=== PATIENT | male | born 1980 | race Caucasian/White ===

== ENCOUNTER 2016-07-27 12:37 | Emergency (ER) | payer OTHER ==
[2016-07-27 12:52] VITALS: BP 120/69
[2016-07-27] MEDS ORDERED: Ketorolac INJ* 60 MG/2 ML VIAL IM ONE (13:37)
--- NOTE | 2016-07-27 14:00 | UC ---
Back Pain HPI - HPI Summary HPI Summary: Patient has history of back pain, has had PT in the past, about 2 years ago. 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 - History of Current Complaint Chief Complaint: UCBackPain Stated Complaint: LOW BACK PAIN Time Seen by Provider: 07/27/16 13:27 Hx Obtained From: Patient Onset/Duration: Sudden Onset, Lasting Days Timing: Constant Severity Currently: Severe Character: Aching, Spasmodic, Burning Aggravating: Movement, Lifting, Walking Alleviating: Rest, Position Associated Signs And Symptoms: Positive: Tingling - Risk Factors AAA Risk Factors: Negative TAD Risk Factors: Negative Cauda Equina Risk Factors: Negative Epidural Abscess Risk Factors: Negative - Allergies/Home Medications Allergies/Adverse Reactions: Allergies Allergy/AdvReac Type Severity Reaction Status Date / Time Bee Venom Allergy Swelling Verified 07/27/16 12:46 PMH/Surg Hx/FS Hx/Imm Hx Previously Healthy: Yes Endocrine History Of: Denies: Diabetes Cardiovascular History Of: Denies: Cardiac Disorders Respiratory History Of: Denies: COPD GI/ History Of: Denies: Gastroesophageal Reflux Neurological History Of: Denies: TIA Psychological History Of: Denies: Anxiety - Surgical History Surgical History: Yes Surgery Procedure, Year, and Place: Left Knee ACL/MCL and arthroscopies; Ear Surgeries; T&A - Family History Known Family History: Positive: None, Cardiac Disease, Hypertension, Diabetes - Social History Alcohol Use: Weekly Alcohol Amount: 2 Substance Use Type: None Smoking Status (MU): Former Smoker Type: Cigarettes Amount Used/How Often: 1/2 PPD Length of Time of Smoking/Using Tobacco: 7 Years Have You Smoked in the Last Year: Yes When Did the Patient Quit Smoking/Using Tobacco: 02/2016 - Immunization History Most Recent Influenza Vaccination: Not the 2015/2016 Season Review of Systems Constitutional: Negative Skin: Negative Eyes: Negative ENT: Negative Respiratory: Negative Cardiovascular: Negative Gastrointestinal: Negative Genitourinary: Negative Motor: Negative Neurovascular: Decreased Sensation Musculoskeletal: Arthralgia, Decreased ROM, Edema, Myalgia Neurological: Weakness Psychological: Negative All Other Systems Reviewed And Are Negative: Yes Physical Exam Triage Information Reviewed: Yes Appearance: Well-Appearing, Well-Nourished, Pain Distress Vital Signs: Initial Vital Signs Temp 97.9 F 07/27/16 12:44 Pulse 68 07/27/16 12:44 Resp 16 07/27/16 12:44 BP 120/69 07/27/16 12:44 Pulse Ox 99 07/27/16 12:44 Vital Signs Reviewed: Yes Eye Exam: Normal Eyes: Positive: Conjunctiva Clear ENT Exam: Normal ENT: Positive: Normal ENT inspection, Hearing grossly normal, Pharynx normal, TMs normal Dental Exam: Normal Neck exam: Normal Neck: Positive: Supple, Nontender, No Lymphadenopathy Respiratory Exam: Normal Respiratory: Positive: Chest non-tender, Lungs clear, Normal breath sounds Cardiovascular Exam: Normal Cardiovascular: Positive: RRR, No Murmur, Pulses Normal Abdominal Exam: Normal Abdomen Description: Positive: Nontender, No Organomegaly, Soft Bowel Sounds: Positive: Present Musculoskeletal: Positive: Strength Limited @ - in bilateral lower extremities, ROM Limited @ - in lumbar flextion and ext, Edema @ - over the spinearound l4 Neurological Exam: Normal Neurological: Positive: Alert, Muscle Tone Normal Psychological Exam: Normal Skin Exam: Normal Back Pain Course/Dx - Course Course Of Treatment: hx obtained, exam performed, toradol given for pain, xray obtained, - Differential Dx/Diagnosis Differential Diagnosis/HQI/PQRI: Arthritis, Fracture, Herniated Disc, Strain, Sprain Provider Diagnoses: lumbar muscle strain Discharge - Discharge Plan Condition: Stable Disposition: HOME Prescriptions: Meloxicam(NF) [Mobic(NF)] 15 mg PO DAILY #14 tab Patient Education Materials: Low Back Strain (ED), Core Strengthening Exercises (GEN) Forms: *Work Release Referrals: DARLENE Parra [Primary Care Provider] - Additional Instructions: take the medication as prescribed, start tomorrow morning. Ice and heat as tolerated. I recommend follow up with your physical therpapist. You did recieve a shot of Toradol today, no Iburprofen or Aleve until 10 pm tonight.
--- NOTE | 2016-07-27 14:20 | RAD ---
INDICATION: Back pain after lifting object COMPARISON: None TECHNIQUE: Routine PA, lateral, and oblique imaging was performed . FINDINGS: Bones: There are no acute bony findings. There are no significant osteoarthritic findings. Alignment: Normal Disc spaces: The disc spaces are well-maintained Soft tissues: There are no soft tissue abnormalities. IMPRESSION: NEGATIVE EXAMINATION.
== END 2016-07-27 14:47 | disposition home or self-care (01) ==
LOC: UCCORT 12:37
DX: S39.012A Strain of muscle, fascia and tendon of lower back, initial encounter (principal); X50.0XXA Overexertion from strenuous movement or load, initial encounter; Y93.89 Activity, other specified; Y92.9 Unspecified place or not applicable; Z87.891 Personal history of nicotine dependence
CPT/HCPCS: 72110; 96372; 99212; G0463; J1885

== ENCOUNTER 2017-04-17 14:11 | Emergency (ER) | payer SELFPAY ==
[2017-04-17 15:10] VITALS: BP 118/62
--- NOTE | 2017-04-17 16:29 | UC ---
Neck Pain HPI - HPI Summary HPI Summary: Left side neck pain hurts in neck shoulder, jaw,, left lower back pain radiates down pelvis in to buttock and down leg-----cannot get in to a comfortable position to sleep - History of Current Complaint Chief Complaint: UCGeneralIllness Stated Complaint: LEFT SIDE JAW,NECK SHOULDER PAIN/LOW BACK PAIN Time Seen by Provider: 04/17/17 16:14 Hx Obtained From: Patient Onset/Duration Of Injury/Symptoms: Months Mechanism Of Injury: No Known Trauma Timing: Constant Onset/Duration: Gradual Onset, Still Present Severity: Moderate Location: Discrete At: - as described Character: Aching, Stiff, Spasmotic Aggravating Factors: Nothing Alleviating Factors: Nothing Associated Signs & Symptoms: Positive: Negative - Allergies/Home Medications Allergies/Adverse Reactions: Allergies Allergy/AdvReac Type Severity Reaction Status Date / Time Bee Venom Allergy Swelling Verified 04/17/17 14:57 PMH/Surg Hx/FS Hx/Imm Hx - Additional Past Medical History Additional PMH: sciatica and bulding discs has some relief in the past with physical therapy Previously Healthy: Yes Psychological History: Anxiety - Surgical History Surgical History: Yes Surgery Procedure, Year, and Place: Left Knee ACL/MCL and arthroscopies; Ear Surgeries; T&A - Family History Known Family History: Positive: None, Cardiac Disease, Hypertension, Diabetes - Social History Occupation: Employed Full-time Lives: With Family Alcohol Use: Occasionally Alcohol Amount: 2 Substance Use Type: None Smoking Status (MU): Former Smoker Type: Cigarettes Amount Used/How Often: 1/2 PPD Length of Time of Smoking/Using Tobacco: 7 Years Have You Smoked in the Last Year: Yes When Did the Patient Quit Smoking/Using Tobacco: 02/2016 - Immunization History Most Recent Influenza Vaccination: Not the Season Review Of Systems Constitutional: Positive: Negative Skin: Positive: Negative Eyes: Positive: Negative Respiratory: Positive: Negative Cardiovascular: Positive: Negative Gastrointestinal: Positive: Negative Genitourinary: Positive: Negative Musculoskeletal: Positive: Arthralgia, Myalgia Neurological: Positive: Negative Psychological: Positive: Negative All Other Systems Reviewed And Are Negative: Yes Physical Exam Triage Information Reviewed: Yes Appearance: Well-Appearing, No Pain Distress, Well-Nourished Vital Signs: Initial Vital Signs Temp 98.1 F 04/17/17 14:59 Pulse 62 04/17/17 14:59 Resp 18 04/17/17 14:59 BP 118/62 04/17/17 14:59 Pulse Ox 98 04/17/17 14:59 Vital Signs Reviewed: Yes Eye Exam: Normal Eyes: Positive: Conjunctiva Clear ENT Exam: Normal ENT: Positive: Normal ENT inspection, Hearing grossly normal, Pharynx normal, TMs normal, Uvula midline. Negative: Nasal congestion, Nasal drainage, TM bulging, Tonsillar swelling, Trismus, Muffled voice, Hoarse voice, Dental tenderness, Sinus tenderness Dental Exam: Normal Neck exam: Normal Neck: Positive: Supple, Nontender, No Lymphadenopathy Respiratory Exam: Normal Respiratory: Positive: Chest non-tender, Lungs clear, Normal breath sounds, No respiratory distress, No accessory muscle use Cardiovascular Exam: Normal Cardiovascular: Positive: RRR, No Murmur, Pulses Normal, Brisk Capillary Refill Abdominal Exam: Normal Abdomen Description: Positive: Nontender, No Organomegaly, Soft Bowel Sounds: Positive: Present Musculoskeletal Exam: Normal Musculoskeletal: Positive: Strength Intact, ROM Intact, No Edema Neurological Exam: Normal Neurological: Positive: Alert, Muscle Tone Normal Psychological Exam: Normal Psychological: Positive: Normal Response To Family Skin Exam: Normal Neck Pain Course/Dx - Course Course Of Treatment: pain med, medrol dose keke, muscle relaxor, genenal exercise , return to physical therapy, follow with pcp - Differential Dx/Diagnosis Provider Diagnoses: right sciatica, muscle spasm left neck and shoulder Discharge - Discharge Plan Condition: Stable Disposition: HOME Prescriptions: Cyclobenzaprine TAB* [Flexeril 10 MG TAB*] 10 mg PO TID PRN #15 tab PRN Reason: muscle spasm Methylprednisolone [Medrol Dosepak 4 MG*] 4 mg PO .SEE KEKE INSTRUCTION #1 keke traMADol TAB* [Ultram*] 50 mg PO Q6HR PRN #16 tab MDD 4 PRN Reason: Pain Patient Education Materials: Sciatica (ED), Muscle Spasm (ED), Lower Back Exercises (ED) Forms: *Work Release Referrals: DARLENE Parra [Primary Care Provider] - 3 Days
== END 2017-04-17 16:42 | disposition home or self-care (01) ==
LOC: UCCORT 14:11
DX: M62.838 Other muscle spasm (principal); M54.41 Lumbago with sciatica, right side; F41.9 Anxiety disorder, unspecified; Z87.891 Personal history of nicotine dependence
CPT/HCPCS: 93005; 99212; G0463

== ENCOUNTER 2017-05-28 08:32 | Emergency (ER) | payer SELFPAY ==
[2017-05-28 08:55] VITALS: BP 118/72
--- NOTE | 2017-05-28 10:13 | UC ---
Throat Pain/Nasal Danilo HPI - HPI Summary HPI Summary: sore throat, chills fever, and body aches for the past 5 days. - History of Current Complaint Chief Complaint: UCRespiratory Stated Complaint: SORE THROAT,BODY ACHES,BILATER EAR Time Seen by Provider: 05/28/17 10:00 Hx Obtained From: Patient Onset/Duration: Sudden Onset, Lasting Days Severity: Moderate Associated Signs & Symptoms: Positive: Dysphagia, Sinus Discomfort, Nasal Discharge, Fever - Allergies/Home Medications Allergies/Adverse Reactions: Allergies Allergy/AdvReac Type Severity Reaction Status Date / Time Bee Venom Allergy Swelling Verified 05/28/17 08:55 Home Medications: Home Medications Col[place]ze Cough Drops 1 tab PO BID PRN 05/28/17 [History Confirmed 05/28/17] Menthol (Mouth-Throat) [[place] Cough Drops] 7 mg MT ONCE PRN 05/28/17 [History Confirmed 05/28/17] PMH/Surg Hx/FS Hx/Imm Hx Previously Healthy: Yes - Surgical History Surgical History: Yes Surgery Procedure, Year, and Place: Left Knee ACL/MCL and arthroscopies; Ear Surgeries; T&A - Family History Known Family History: Positive: None, Cardiac Disease, Hypertension, Diabetes - Social History Alcohol Use: Occasionally Alcohol Amount: 2 Substance Use Type: None Smoking Status (MU): Former Smoker Type: Cigarettes Amount Used/How Often: 1/2 PPD Length of Time of Smoking/Using Tobacco: 7 Years Have You Smoked in the Last Year: Yes When Did the Patient Quit Smoking/Using Tobacco: 02/2016 - Immunization History Most Recent Influenza Vaccination: Not the Season Review of Systems Constitutional: Fever, Chills Skin: Negative Eyes: Negative ENT: Sore Throat, Ear Ache, Sinus Congestion Respiratory: Cough Cardiovascular: Negative Gastrointestinal: Negative Genitourinary: Negative Motor: Negative Neurovascular: Negative Musculoskeletal: Arthralgia, Myalgia Neurological: Headache Psychological: Negative Is Patient Immunocompromised?: No All Other Systems Reviewed And Are Negative: Yes Physical Exam Triage Information Reviewed: Yes Appearance: Well-Nourished, Ill-Appearing, Pain Distress Vital Signs: Initial Vital Signs Temp 100 F 05/28/17 08:45 Pulse 80 05/28/17 08:45 Resp 18 05/28/17 08:45 BP 118/72 05/28/17 08:45 Pulse Ox 98 05/28/17 08:45 Vital Signs Reviewed: Yes Eye Exam: Normal ENT: Positive: Pharyngeal erythema, Nasal congestion, Other - bilateral cerumen impaction, patient refused irrigation Dental Exam: Normal Neck exam: Normal Neck: Positive: Supple, Nontender, No Lymphadenopathy Respiratory Exam: Normal Respiratory: Positive: Chest non-tender, Lungs clear, Normal breath sounds Abdominal Exam: Normal Abdomen Description: Positive: Nontender, No Organomegaly, Soft Bowel Sounds: Positive: Present Musculoskeletal Exam: Normal Musculoskeletal: Positive: Strength Intact, ROM Intact, No Edema Neurological Exam: Normal Neurological: Positive: Alert, Muscle Tone Normal Psychological Exam: Normal Skin Exam: Normal Throat Pain/Nasal Course/Dx - Course Course Of Treatment: hx obtained, exam performed ,meds reviewed, patient refused motrin or APAP, refused ear irrigation. rapid flu and strep obtained. - Differential Dx/Diagnosis Differential Diagnosis/HQI/PQRI: Influenza, Otitis Media, Pharyngitis, Sinusitis , URI Provider Diagnoses: tonsillitis. sinusitis Discharge - Discharge Plan Condition: Stable Disposition: HOME Prescriptions: Amoxicillin PO (*) [Amoxicillin 875 MG (*)] 875 mg PO BID #20 tab Guaifenesin-Codeine [Cheratussin AC 100-10 mg/5Ml] 1 syp PO BID PRN #50 syp MDD 10 ml PRN Reason: Cough predniSONE TAB* [Deltasone TAB*] 40 mg PO DAILY #14 tab Referrals: No Primary Care Phys,NOPCP [Primary Care Provider] - Additional Instructions: 1. increase fluid intake and get plenty of rest. 2. take the medication as prescribed. 3. I recommend getting an ear wash kit, to flush bothe ears. 4. FOllow up as needed.
== END 2017-05-28 10:36 | disposition home or self-care (01) ==
LOC: UCCORT 08:32
DX: J03.90 Acute tonsillitis, unspecified (principal); J32.9 Chronic sinusitis, unspecified; Z91.030 Bee allergy status; Z87.891 Personal history of nicotine dependence
CPT/HCPCS: 87502; 87651; 99212; G0463

== ENCOUNTER 2017-07-26 15:31 | Emergency (ER) | payer SELFPAY ==
[2017-07-26 16:52] VITALS: BP 118/70
--- NOTE | 2017-07-26 17:15 | RAD ---
INDICATION: Right hand injury. TECHNIQUE: 4 views of the right hand were obtained. FINDINGS: There is soft tissue swelling in the second finger. There is an oblique fracture extending through the dorsal base of the distal phalanx to the articular margin. The fracture fragment is slightly distracted. No other fractures are seen. IMPRESSION: SLIGHTLY DISPLACED INTRA-ARTICULAR FRACTURE AT THE DORSAL BASE OF THE DISTAL PHALANX OF THE SECOND FINGER.
--- NOTE | 2017-07-26 17:22 | UC ---
Hand/Wrist HPI - HPI Summary HPI Summary: 36 yo male punched a wall in anger 2 days ago c/o r hand pain unable to [employer] tools at work skin not broken-he was wearing gloves - History Of Current Complaint Chief Complaint: UCUpperExtremity Stated Complaint: RT HAND INJURY Time Seen by Provider: 07/26/17 16:46 Hx Obtained From: Patient Onset/Duration: Sudden Onset Severity Initially: Moderate Severity Currently: Moderate Pain Intensity: 7 Pain Scale Used: 0-10 Numeric Character Of Pain: Aching, Throbbing Aggravating Factor(s): Movement Associated Signs And Symptoms: Positive: Swelling, Bruising Related History: Dominant Hand Right Hands: 1 - swollen/ecchymotic 2 - swollen/tender 3 - tender - Allergies/Home Medications Allergies/Adverse Reactions: Allergies Allergy/AdvReac Type Severity Reaction Status Date / Time bee venom protein (honey bee) Allergy Swelling Verified 07/26/17 16:45 Home Medications: Home Medications Ibuprofen TAB* [Advil TAB*] 800 mg PO Q6H PRN 07/26/17 [History Confirmed ] PMH/Surg Hx/FS Hx/Imm Hx Previously Healthy: Yes - Surgical History Surgical History: Yes Surgery Procedure, Year, and Place: Left Knee ACL/MCL and arthroscopies; Ear Surgeries; T&A - Family History Known Family History: Positive: Cardiac Disease, Hypertension, Diabetes - Social History Alcohol Use: Rare Alcohol Amount: 2 Substance Use Type: None Smoking Status (MU): Former Smoker Type: Cigarettes Amount Used/How Often: 1/2 PPD Length of Time of Smoking/Using Tobacco: 7 Years Have You Smoked in the Last Year: Yes When Did the Patient Quit Smoking/Using Tobacco: 02/2016 - Immunization History Most Recent Influenza Vaccination: Not the Season Review of Systems Constitutional: Negative Skin: Bruising Eyes: Negative ENT: Negative Respiratory: Negative Cardiovascular: Negative Gastrointestinal: Negative Genitourinary: Negative Motor: Negative Neurovascular: Negative Musculoskeletal: Arthralgia Neurological: Negative Psychological: Negative Is Patient Immunocompromised?: No All Other Systems Reviewed And Are Negative: Yes Physical Exam Triage Information Reviewed: Yes Appearance: Well-Appearing, No Pain Distress, Well-Nourished Vital Signs: Initial Vital Signs Temp 98 F 07/26/17 16:46 Pulse 75 07/26/17 16:46 Resp 20 07/26/17 16:46 BP 118/70 07/26/17 16:46 Pulse Ox 97 07/26/17 16:46 Vital Signs Reviewed: Yes Eyes: Positive: Conjunctiva Clear ENT: Positive: Hearing grossly normal. Negative: Nasal congestion, Nasal drainage, Trismus, Muffled voice, Hoarse voice Neck: Positive: Supple, Nontender Respiratory: Positive: Lungs clear, Normal breath sounds, No respiratory distress Cardiovascular: Positive: RRR, No Murmur Abdominal Exam: Normal Musculoskeletal: Positive: Edema @ - doesal hand (R), Other: - mallet finger deformity right IF, Neurological: Positive: Alert Skin Exam: Normal Procedures - Splinting Location: right 2nd finger Pre-Made Type: 5.5 STAX splint Pre-Proc Neuro Vasc Exam: normal Post-Proc Neuro Vasc Exam: normal Diagnostics - Radiology No standard instances Xray Interpretation: Positive (See Comments) - SLIGHTLY DISPLACED INTRA- ARTICULAR FRACTURE AT THE DORSAL BASE OF THE DISTAL PHALANX OF THE SECOND FINGER Radiology Interpretation Completed By: Radiologist Hand/Wrist Course/Dx - Differential Dx/Diagnosis Provider Diagnoses: 1. hand contusion. 2. SLIGHTLY DISPLACED INTRA-ARTICULAR FRACTURE AT THE DORSAL BASE OF THE DISTAL. PHALANX OF THE SECOND FINGER Discharge - Discharge Plan Condition: Stable Disposition: HOME Patient Education Materials: Finger Fracture (ED), Contusion in Adults (ED) Forms: *Work Release Referrals: Kel Shelby MD [Medical Doctor] - As Soon As Possible Additional Instructions: you have a mallet finger with a fracture STAX splint hand contusion splint motrin see orthopedist about your mallet finger sometime's this needs surgical repair
== END 2017-07-26 17:42 | disposition home or self-care (01) ==
LOC: UCCORT 15:31
DX: S60.221A Contusion of right hand, initial encounter (principal); S62.630A Displaced fracture of distal phalanx of right index finger, initial encounter for closed fracture; W22.09XA Striking against other stationary object, initial encounter; Y93.9 Activity, unspecified; Y92.9 Unspecified place or not applicable; Z87.891 Personal history of nicotine dependence
CPT/HCPCS: 99212; G0463

== ENCOUNTER 2018-03-02 14:04 | Emergency (ER) | payer OTHER ==
[2018-03-02 16:07] VITALS: BP 126/76
[2018-03-02] MEDS ORDERED: Naproxen TAB* 250 MG PO ONE (16:29)
--- NOTE | 2018-03-02 16:42 | UC ---
Upper Extremity HPI - HPI Summary HPI Summary: 37-year-old male presents with right shoulder pain after accidentally falling out of bed and landing on his outstretched arm onto a hardwood floor last night. States pain as a constant ache. Worsens with movement. Has not taken any [id number] pain medications. Reports previous injury to the shoulder couple years ago resulting in an AC separation. Denies other injury, chest pain , palpitations, dizziness, shortness of breath, numbness, tingling, or weakness to the affected extremity. - History of Current Complaint Chief Complaint: UCTrauma Stated Complaint: RIGHT SHOULDER/NECK PAIN Time Seen by Provider: 03/02/18 16:05 Hx Obtained From: Patient Onset/Duration: Sudden Onset Severity Currently: Moderate Pain Intensity: 8 Character: Aching Aggravating Factor(s): Movement Alleviating Factor(s): Nothing Associated Signs And Symptoms: Positive: Negative - Allergies/Home Medications Allergies/Adverse Reactions: Allergies Allergy/AdvReac Type Severity Reaction Status Date / Time bee venom protein (honey bee) Allergy Swelling Verified 03/02/18 16:07 PMH/Surg Hx/FS Hx/Imm Hx Previously Healthy: Yes - Denies significant PMH - Surgical History Surgical History: Yes Surgery Procedure, Year, and Place: Left Knee ACL/MCL and arthroscopies; Ear Surgeries; T&A - Family History Known Family History: Positive: Cardiac Disease, Hypertension, Diabetes - Social History Occupation: Employed Full-time Lives: With Family Alcohol Use: Rare Alcohol Amount: 2 Substance Use Type: None Smoking Status (MU): Former Smoker Type: Cigarettes Amount Used/How Often: 1/2 PPD Length of Time of Smoking/Using Tobacco: 7 Years Have You Smoked in the Last Year: Yes When Did the Patient Quit Smoking/Using Tobacco: 02/2016 - Immunization History Most Recent Influenza Vaccination: Not the Season Review of Systems Constitutional: Negative Skin: Negative Respiratory: Negative Cardiovascular: Negative Motor: Decreased ROM - due to pain Neurovascular: Negative Musculoskeletal: Arthralgia - See HPI Neurological: Negative Is Patient Immunocompromised?: No All Other Systems Reviewed And Are Negative: Yes Physical Exam Triage Information Reviewed: Yes Appearance: Well-Appearing, No Pain Distress, Well-Nourished Vital Signs: Initial Vital Signs Temp 98.0 F 03/02/18 16:02 Pulse 89 03/02/18 16:02 Resp 18 03/02/18 16:02 BP 126/76 03/02/18 16:02 Pulse Ox 97 03/02/18 16:02 Vital Signs Reviewed: Yes Neck: Positive: Supple, Nontender Respiratory: Positive: Lungs clear, Normal breath sounds, No respiratory distress Cardiovascular: Positive: RRR, No Murmur, Pulses Normal, Brisk Capillary Refill Musculoskeletal: Positive: Strength Intact, No Edema, ROM Limited @ - Limited flexion d/t pain, Other: - Mild tenderness anterior shoulder. No obvious deformity, crepitus, erythema, or eccymosis. Neurological: Positive: Alert, Other: - Sensation intact distally Skin Exam: Normal Diagnostics - Radiology No standard instances Xray Interpretation: No Acute Changes Radiology Interpretation Completed By: ED Physician - No fracture or dislocation , Radiologist - Patient Name: TREVOR SUE Medical Record#: [id number] Ordering Physician: Flex Palacios NP Acct.#: [id number] : 1980 Age : 37 Sex: M Location: [facility] Exam Date: 03/02/181628 ADM Status : REG ER Order Information: SHOULDER RIGHT 2+ VWS Accession Number: [id number] CPT: 86350 Indication: Right shoulder pain. 4 views of the right shoulder demonstrates no fracture or dislocation. No other bone or joint abnormality is noted. IMPRESSION: No fracture of the right shoulder is noted. Upper Extremity Course/Dx - Course Course Of Treatment: 37 year old male with right shoulder pain s/p falling out of bed. Patient had full but painful ROM. Mild tenderness over AC joint. X-ray negative for fracture or dislocation. Recommend conservative treatment with NSAIDs, RICE, and ROM exercises. Patient is to follow up with PCP if symptoms persist. - Differential Dx/Diagnosis Differential Diagnosis/HQI/PQRI: Contusion, Fracture (Closed), Sprain Provider Diagnoses: Right shoulder sprain Discharge - Sign-Out/Discharge Documenting (check all that apply): Patient Departure All imaging exams completed and their final reports reviewed: Yes - Discharge Plan Condition: Stable Disposition: HOME Prescriptions: Naproxen [Naproxen 500 mg tab] 500 mg PO BID #30 tablet Patient Education Materials: Shoulder Sprain (ED) Forms: *Work Release Referrals: Lindsay Crocker MD [Primary Care Provider] - 7 Days (If no improvement.) Additional Instructions: The x-ray of the right shoulder was performed in the clinic today showed no evidence of a fracture or dislocation. His symptoms are likely from a sprain or contusion of the shoulder. Rest the shoulder as much as possible. Avoid heavy lifting until pain free. You should perform some gentle range of motion exercises as discussed to avoid the shoulder from freezing up. Apply ice for 15-20 minutes 4 times a day to help reduce any swelling. Take naproxen 1 tablet every 12 hours for the next 5-7 days. Be sure to take with food to avoid upset stomach. After 5-7 days you may start taking this every 12 hours as needed for pain. Follow-up with your primary care provider in 7 days if symptoms persist. - Billing Disposition and Condition Condition: STABLE Disposition: Home - Attestation Statements Provider Attestation: Per institutional requirements, I have reviewed the chart, however, I was not consulted specifically or made aware of this patient by the midlevel provider. I did not personally evaluate, interact with , or disposition this patient.
--- NOTE | 2018-03-02 17:28 | RAD ---
Indication: Right shoulder pain. 4 views of the right shoulder demonstrates no fracture or dislocation. No other bone or joint abnormality is noted. IMPRESSION: No fracture of the right shoulder is noted.
== END 2018-03-02 18:11 | disposition home or self-care (01) ==
LOC: UCCORT 14:04
DX: S43.401A Unspecified sprain of right shoulder joint, initial encounter (principal); W06.XXXA Fall from bed, initial encounter; Y92.9 Unspecified place or not applicable; Z87.891 Personal history of nicotine dependence; Z91.030 Bee allergy status
CPT/HCPCS: 99212; A9270-GY; G0463

== ENCOUNTER 2018-07-05 09:31 | Emergency (ER) | payer OTHER ==
[2018-07-05 10:00] VITALS: BP 125/73
--- NOTE | 2018-07-05 10:09 | UC ---
Ear Complaint HPI - HPI Summary HPI Summary: 37-year-old male presents with 10 day history of nasal congestion, runny nose, mild sore throat, and occasionally productive cough. States over the past 5 days he has been having increasing bilateral ear pain and fullness. States he had a couple episodes of some thin yellow drainage from the ears. Reports a history of multiple ear surgeries as a child. Denies fever, chills, dysphagia, hearing loss, tinnitus, vertigo, chest pain, shortness of breath, abdominal pain , nausea, vomiting, or diarrhea. - History of Current Complaint Chief Complaint: UCEar Stated Complaint: BI LAT EAR PAIN Time Seen by Provider: 07/05/18 10:04 Hx Obtained From: Patient Pain Intensity: 7 - Allergies/Home Medications Allergies/Adverse Reactions: Allergies Allergy/AdvReac Type Severity Reaction Status Date / Time bee venom protein (honey bee) Allergy Swelling Verified 07/05/18 09:54 PMH/Surg Hx/FS Hx/Imm Hx Previously Healthy: Yes - Denies significant PMH - Surgical History Surgical History: Yes Surgery Procedure, Year, and Place: Left Knee ACL/MCL and arthroscopies; Ear tubes x 7-8 as a child; T&A - Family History Known Family History: Positive: Cardiac Disease, Hypertension, Diabetes - Social History Occupation: Employed Full-time Lives: With Family Alcohol Use: None Alcohol Amount: 2 Substance Use Type: None Smoking Status (MU): Former Smoker Type: Cigarettes Amount Used/How Often: 1/2 PPD Length of Time of Smoking/Using Tobacco: 7 Years Have You Smoked in the Last Year: Yes When Did the Patient Quit Smoking/Using Tobacco: 02/2016 - Immunization History Most Recent Influenza Vaccination: Not the 2015/2016 Season Review of Systems All Other Systems Reviewed And Are Negative: Yes Constitutional: Negative: Fever, Chills Skin: Negative: Rash Eyes: Negative: Drainage, Eye Redness ENT: Positive: Sore Throat, Ear Ache, Nasal Discharge, Sinus Congestion. Negative: Sinus Pain/Tenderness Respiratory: Positive: Cough. Negative: Shortness Of Breath Cardiovascular: Negative: Palpitations, Chest Pain Gastrointestinal: Negative: Abdominal Pain, Vomiting, Diarrhea, Nausea Genitourinary: Positive: Negative Musculoskeletal: Positive: Negative Neurological: Positive: Negative Is Patient Immunocompromised?: No Physical Exam - Summary Physical Exam Summary: GENERAL APPEARANCE: Well developed, well nourished, alert and cooperative, and appears to be in no acute distress. EYES: Conjunctiva clear. No drainage. Vision is grossly intact. EARS: Bilateral external auditory canals with some cerumen. Left TM intact, opaque, with good cone of light. Right TM erythematous with effusion. Hearing grossly intact. NOSE: Mild-moderate nasal congestion. No nasal discharge. THROAT: Mild pharyngeal erythema. No tonsilar inflammation, swelling, exudate, or lesions. Oral cavity normal. Teeth and gingiva in good general condition. NECK: Neck supple, non-tender without lymphadenopathy. CARDIAC: Normal S1 and S2. No S3, S4 or murmurs. Rhythm is regular. There is no peripheral edema, cyanosis or pallor. Extremities are warm and well perfused. Capillary refill is less than 2 seconds. LUNGS: Clear to auscultation without rales, rhonchi, wheezing or diminished breath sounds. ABDOMEN: Positive bowel sounds. Soft, nondistended, nontender. No guarding or rebound. No masses or hepatosplenomegally. MUSKULOSKELETAL: ROM intact to all extremities. No joint erythema or tenderness. Normal muscular development. Normal gait. SKIN: Skin normal color, texture and turgor with no lesions or eruptions. Triage Information Reviewed: Yes Vital Signs: Initial Vital Signs Temp 97.6 F 07/05/18 09:55 Pulse 62 07/05/18 09:55 Resp 16 07/05/18 09:55 BP 125/73 07/05/18 09:55 Pulse Ox 98 07/05/18 09:55 Vital Signs Reviewed: Yes Ear Complaint Course/Dx - Course Course Of Treatment: 37-year-old male presents with 10 day history of nasal congestion, runny nose, mild sore throat, and occasionally productive cough. States over the past 5 days he has been having increasing bilateral ear pain and fullness. States he had a couple episodes of some thin yellow drainage from the ears. Reports a history of multiple ear surgeries as a child. Denies fever, chills, dysphagia, hearing loss, tinnitus, vertigo, chest pain, shortness of breath, abdominal pain, nausea, vomiting, or diarrhea. Afebrile. Vital signs stable. Exam reveals an adult male in no acute distress with right TM erythema with effusion, mild to moderate nasal congestion, mild pharyngeal erythema without tonsillar swelling or exudate, clear bilateral breath sounds, and a nonproductive cough. I will place him on Augmentin 875 mg 1 tablet twice a day 10 days to treat for the right otitis media and recommended symptomatic treatment for his URI symptoms. He is to return here or follow-up with his primary care provider in 7 days if symptoms do not improve. She is short guidance and warning symptoms were reviewed with the patient. Verbalizes understanding and agrees with plan of care. - Differential Dx/Diagnosis Differential Diagnosis/HQI/PQRI: Otitis Externa, Otitis Media, URI, Other - Eustachian tube dysfunction Provider Diagnosis: Upper respiratory infection with cough and congestion, Right otitis media with effusion Discharge - Sign-Out/Discharge Documenting (check all that apply): Patient Departure All imaging exams completed and their final reports reviewed: No Studies - Discharge Plan Condition: Stable Disposition: HOME Prescriptions: Amoxicillin/Clavulanate TAB* [Augmentin TAB 875*] 875 mg PO BID #20 tab Fluticasone NASAL SPRAY 50MCG* [Flonase NASAL SPRAY 50MCG*] 2 spray BOTH NARES DAILY #1 btl Patient Education Materials: Ear Infection (ED), Upper Respiratory Infection ( ED) Referrals: Lindsay Crocker MD [Primary Care Provider] - 7 Days (If no improvement in symptoms. ) Additional Instructions: Your history and exam are consistent with an upper respiratory infection with secondary ear infection. We will treat you with an antibiotic for the ear infection. Start Augmentin 875 mg 1 tab every 12 hours for 10 days. Take with food to avoid upset stomach. Be sure to complete the entire course even if feeling better. Drink plenty of fluids to avoid dehydration especially if you are running any fever. Use fluticasone (Flonase) nasal spray 2 sprays each nostril once daily. Use [id number] Sudafed according to directions for the congestion. Take over the counter acetaminophen (Tylenol) or ibuprofen (Advil, Motrin) according to directions as needed for pain or fever. Return here or follow up with your primary care provider in 7 days if symptoms persist. Seek immediate medical attention in the emergency room if you have fever greater than 100.5 F despite taking acetaminophen or ibuprofen, have chest pain , difficulty breathing, are unable to swallow, or have any worsening of symptoms. - Billing Disposition and Condition Condition: STABLE Disposition: Home
== END 2018-07-05 10:24 | disposition home or self-care (01) ==
LOC: UCCORT 09:31
DX: H65.91 Unspecified nonsuppurative otitis media, right ear (principal); J06.9 Acute upper respiratory infection, unspecified; R05 Cough; R09.81 Nasal congestion; Z87.891 Personal history of nicotine dependence; Z91.030 Bee allergy status
CPT/HCPCS: 99212; G0463

== ENCOUNTER 2018-10-06 17:24 | Emergency (ER) | payer SELFPAY ==
--- NOTE | 2018-10-06 18:30 | ED ---
Lower Extremity - HPI Summary HPI Summary: 37 yr old male with the complaint of right ankle pain. Onset this afternoon when he stepped in a hole when getting off a ladder. He has pain in the lateral and medial ankle and over the proximal fibula. Pain is moderate, and worse with weight bear. The patient worked most of the day after the injury. - History of Current Complaint Stated Complaint: RIGHT ANKLE INJURY Time Seen by Provider: 10/06/18 18:12 - Allergies/Home Medications Allergies/Adverse Reactions: Allergies Allergy/AdvReac Type Severity Reaction Status Date / Time bee venom protein (honey bee) Allergy Swelling Verified 10/06/18 18:40 PMH/Surg Hx/FS Hx/Imm Hx Endocrine/Hematology History: Denies: Hx Diabetes Respiratory History: Denies: Hx Chronic Obstructive Pulmonary Disease (COPD) Neurological History: Denies: Hx Transient Ischemic Attacks (TIA) Psychiatric History: Denies: Hx Anxiety - Surgical History Surgery Procedure, Year, and Place: Left Knee ACL/MCL and arthroscopies; Ear tubes x 7-8 as a child; T&A Infectious Disease History: Denies: Traveled Outside the [place] in Last 30 Days - Family History Known Family History: Positive: Cardiac Disease, Hypertension, Diabetes - Social History Occupation: Employed Full-time Alcohol Use: None Alcohol Amount: 2 Substance Use Type: Reports: None Smoking Status (MU): Former Smoker Type: Cigarettes Amount Used/How Often: 1/2 PPD Length of Time of Smoking/Using Tobacco: 7 Years Have You Smoked in the Last Year: Yes Review of Systems Constitutional: Negative Positive: Other - ankle pain All Other Systems Reviewed And Are Negative: Yes Physical Exam Triage Information Reviewed: Yes Vital Signs Reviewed: Yes Appearance: Positive: Well-Appearing, No Pain Distress Skin: Positive: Warm, Skin Color Reflects Adequate Perfusion Head/Face: Positive: Normal Head/Face Inspection Eyes: Positive: EOMI, CAROLYN ENT: Positive: Normal ENT inspection Neck: Positive: Nontender Respiratory/Lung Sounds: Positive: Clear to Auscultation, Breath Sounds Present Cardiovascular: Positive: Pulses are Symmetrical in both Upper and Lower Extremities Abdomen Description: Negative: Distended Musculoskeletal: Positive: Other - right ankle pain over the medial and lateral malleolus and also tender over the right proximal fibula. Foot non tender over the lateral foot. Neurological: Positive: Sensory/Motor Intact, Alert, Oriented to Person Place, Time, CN Intact II-III Psychiatric: Positive: Normal - Eddy Coma Scale Best Eye Response: 4 - Spontaneous Best Motor Response: 6 - Obeys Commands Best Verbal Response: 5 - Oriented Coma Scale Total: 15 Diagnostics - Laboratory Lab Statement: Any lab studies that have been ordered have been reviewed, and results considered in the medical decision making process. - Radiology right tib fib, ankle Radiology Interpretation Completed By: ED Physician - NAD Lower Extremity Course/Dx - Course Course Of Treatment: 37 yr old with ankle sprain. DC home Splint, crutches. - Diagnoses Provider Diagnoses: Sprain of ankle, right Discharge - Sign-Out/Discharge Documenting (check all that apply): Patient Departure All imaging exams completed and their final reports reviewed: No - Discharge Plan Condition: Good Disposition: HOME Patient Education Materials: Ankle Sprain (DC) Referrals: Lindsay Crocker MD [Primary Care Provider] - Kel Shelby MD [Medical Doctor] - - Billing Disposition and Condition Condition: GOOD Disposition: Home
[2018-10-06 18:40] VITALS: BP 111/65
--- NOTE | 2018-10-07 07:50 | UC ---
- EKG/XRAY/CT Xray Comments: wet read correct Course/Dx - Diagnoses Provider Diagnoses: Sprain of ankle, right Discharge - Sign-Out/Discharge Documenting (check all that apply): Post-Discharge Follow Up All imaging exams completed and their final reports reviewed: Yes - Discharge Plan Condition: Good Disposition: HOME Patient Education Materials: Ankle Sprain (DC) Referrals: Lindsay Crocker MD [Primary Care Provider] - Kel Shelby MD [Medical Doctor] - - Billing Disposition and Condition Condition: GOOD Disposition: Home
== END 2018-10-06 20:00 | disposition home or self-care (01) ==
LOC: UCCORT 17:24
DX: S93.401A Sprain of unspecified ligament of right ankle, initial encounter (principal); Z91.030 Bee allergy status; Z87.891 Personal history of nicotine dependence; X50.0XXA Overexertion from strenuous movement or load, initial encounter; Y92.9 Unspecified place or not applicable
CPT/HCPCS: 99213; G0463

== ENCOUNTER 2019-02-16 13:20 | Emergency (ER) | payer OTHER ==
[2019-02-16 13:50] VITALS: BP 128/69
--- NOTE | 2019-02-16 14:06 | UC ---
Laceration HPI - HPI Summary HPI Summary: 1. laceration left middle finger x 2 hrs cut his finger as he was cutting carpet with a utility knife cut is deep , went in in an angle applied pressure to stop the bleeding 2. sore throat x 5 days , no cough , no nasal congestion , no fever, no chills 2 of his sons has strep - History Of Current Complaint Chief Complaint: UCLaceration Stated Complaint: WC FINGER LACERATION Time Seen by Provider: 02/16/19 13:52 Hx Obtained From: Patient Laceration Location: Finger - left middle finger Mechanism Of Injury: Sharp Trauma Onset/Duration: Sudden Onset, Lasting Hours - 2, Still Present Severity: Moderate Pain Intensity: 5 Aggravating Factors: Movement - Allergies/Home Medications Allergies/Adverse Reactions: Allergies Allergy/AdvReac Type Severity Reaction Status Date / Time bee venom protein (honey bee) Allergy Swelling Verified 02/16/19 13:50 PMH/Surg Hx/FS Hx/Imm Hx Previously Healthy: Yes - Surgical History Surgical History: Yes Surgery Procedure, Year, and Place: Left Knee ACL/MCL and arthroscopies; Ear tubes x 7-8 as a child; T&A - Family History Known Family History: Positive: Cardiac Disease, Hypertension, Diabetes - Social History Alcohol Use: Occasionally Alcohol Amount: 2 Substance Use Type: None Smoking Status (MU): Light Every Day Tobacco Smoker Type: Cigarettes Amount Used/How Often: 1/2 PPD Length of Time of Smoking/Using Tobacco: 7 Years Have You Smoked in the Last Year: Yes When Did the Patient Quit Smoking/Using Tobacco: 02/2016 - Immunization History Most Recent Influenza Vaccination: Not the Season Review of Systems All Other Systems Reviewed And Are Negative: Yes Constitutional: Positive: Negative Eyes: Positive: Negative ENT: Positive: Sore Throat. Negative: Ear Ache, Nasal Discharge, Sinus Congestion, Sinus Pain/Tenderness Respiratory: Negative: Cough Cardiovascular: Positive: Negative Is Patient Immunocompromised?: No Physical Exam Triage Information Reviewed: Yes Appearance: Well-Appearing, No Pain Distress, Well-Nourished Vital Signs: Initial Vital Signs Temp 98.4 F 02/16/19 13:47 Pulse 75 02/16/19 13:47 Resp 16 02/16/19 13:47 BP 128/69 02/16/19 13:47 Pulse Ox 97 02/16/19 13:47 Vital Signs Reviewed: Yes Eye Exam: Normal Eyes: Positive: Conjunctiva Clear ENT: Positive: Normal ENT inspection, Hearing grossly normal, Pharynx normal, TMs normal. Negative: Pharyngeal erythema, Nasal congestion, Nasal drainage Neck exam: Normal Neck: Positive: Supple, Nontender, No Lymphadenopathy Respiratory: Positive: Chest non-tender, Lungs clear, Normal breath sounds Cardiovascular: Positive: RRR, No Murmur, Pulses Normal Skin: Positive: Other - 1 cm laceration left middle finger tip , + flap , bleeding was controlled by pressure Laceration Repair - Laceration Repair 1 Description: Linear Laceration Size After Repair: Length (cm) - 1, Width (mm) - 2, Depth (mm) - 2 Modified For Repair: No Cleansing Completed Via Routine Prep: Yes Irrigation With Pressure Irrigation Device: Yes Closure Material: Skin Adhesive Laceration Course/Dx - Diagnosis Provider Diagnosis: Laceration of left middle finger, Pharyngitis Discharge ED - Sign-Out/Discharge Documenting (check all that apply): Patient Departure All imaging exams completed and their final reports reviewed: No Studies - Discharge Plan Condition: Stable Disposition: HOME Patient Education Materials: Finger Laceration (ED), Pharyngitis (ED) Referrals: Lindsay Crocker MD [Primary Care Provider] - 5 Days Additional Instructions: no need for sutures , will use glue to repair the laceration keep the wound clean and dry , follow up in 5 days as needed negative rapid strep viral sore throat, no need for antibiotics - Billing Disposition and Condition Condition: STABLE Disposition: Home
== END 2019-02-16 14:37 | disposition home or self-care (01) ==
LOC: UCCORT 13:20
DX: S61.213A Laceration without foreign body of left middle finger without damage to nail, initial encounter (principal); J02.9 Acute pharyngitis, unspecified; Z91.030 Bee allergy status; F17.210 Nicotine dependence, cigarettes, uncomplicated; W26.0XXA Contact with knife, initial encounter; Y92.9 Unspecified place or not applicable
CPT/HCPCS: 12001; 87651; 99212; G0463